=== PATIENT | male | born 1960 | race Asian ===

== ENCOUNTER 2023-04-04 09:57 | Day surgery (SDC) | payer OTHER ==
[2023-04-03 16:09] VITALS: BMI 25.1
[2023-04-04] MEDS: CIPROFLOXACIN HCL 0.3% OPHTH 2.5ML BOTTLE ONE ×3 (10:25→10:35)
[2023-04-04] MEDS: CYCLOPENTOLATE 2% OPHTH SOLN 2 ML BOTTLE ONE ×3 (10:25→10:35)
[2023-04-04] MEDS: PHENYLEPHRINE 2.5% OPTHALMIC DROP 2ML BOTTLE ONE ×3 (10:25→10:35)
[2023-04-04] MEDS: TROPICAMIDE 1% OPHTH SOLN 15 ML BOTTLE ONE ×3 (10:25→10:35)
[2023-04-04] MEDS ORDERED: LIDOCAINE 1% P/F 10 MG/ML VIAL ONE (10:26)
[2023-04-04] MEDS ORDERED: BSS (NA/CA/MG/K) BALANCED SALT SOLUTION OPHTH SOLN 15 ML BOTTLE ONE (10:27)
[2023-04-04] MEDS ORDERED: CARBACHOL 0.01% INTRA-OCULAR 1.5 ML VIAL ONE (10:27)
[2023-04-04] MEDS ORDERED: NEO/POLYMYX B SULF/DEXAMETH OPHTHALMIC 5ML BOTTLE ONE (10:27)
[2023-04-04 11:35] VITALS: PULSE 60
[2023-04-04] MEDS ORDERED: MIDAZOLAM HCL 2 MG/2 ML SINGLE DOSE VIAL ONE (12:13)
[2023-04-04 13:11] VITALS: RESP 16; TEMP 97.6
[2023-04-04 13:30] VITALS: BP 140/85
== END 2023-04-04 13:30 | disposition home or self-care (01) ==
LOC: FASU 09:57
PROVIDERS: ATTEND Ophthalmology
PROC: 08RJ3JZ Replacement of Right Lens with Synthetic Substitute, Percutaneous Approach (ICD-10-PCS; principal; 2023-04-04 12:45)
DX: H26.8 Other specified cataract (principal)
CPT/HCPCS: 66984; V2632

== ENCOUNTER 2024-01-10 10:20 | Day surgery (SDC) | payer OTHER ==
[2024-01-08 10:13] VITALS: BMI 24.3
[2024-01-10] MEDS: CYCLOPENTOLATE 2% OPHTH SOLN 2 ML BOTTLE ONE (11:00)
[2024-01-10] MEDS: CIPROFLOXACIN 0.3% EYE DROPS 5 ML BOTTLE ONE (11:00)
[2024-01-10] MEDS: PHENYLEPHRINE 2.5% OPTHALMIC DROP 2ML BOTTLE ONE (11:00)
[2024-01-10] MEDS: TROPICAMIDE 1% OPHTH SOLN 15 ML BOTTLE ONE (11:00)
[2024-01-10] MEDS ORDERED: BSS (NA/CA/MG/K) BALANCED SALT SOLUTION OPHTH SOLN 15 ML BOTTLE ONE (11:20)
[2024-01-10] MEDS ORDERED: NEO/POLYMYX B SULF/DEXAMETH OPHTHALMIC 5ML BOTTLE ONE (11:20)
[2024-01-10] MEDS ORDERED: TETRACAINE 0.5% OPHTH SOLN 2 ML BOTTLE ONE (11:20)
[2024-01-10] MEDS ORDERED: CARBACHOL 0.01% INTRA-OCULAR 1.5 ML VIAL ONE (11:20)
[2024-01-10] MEDS ORDERED: LIDOCAINE 1% P/F 10 MG/ML VIAL ONE (11:20)
[2024-01-10] MEDS ORDERED: MIDAZOLAM HCL 2 MG/2 ML SINGLE DOSE VIAL ONE (13:48)
[2024-01-10 14:11] VITALS: RESP 18; TEMP 97.3
[2024-01-10 14:35] VITALS: BP 132/80; PULSE 62
== END 2024-01-10 14:34 | disposition home or self-care (01) ==
LOC: FASU 10:20
PROVIDERS: ATTEND Ophthalmology
PROC: 08RK3JZ Replacement of Left Lens with Synthetic Substitute, Percutaneous Approach (ICD-10-PCS; principal; 2024-01-10 13:50)
DX: H26.8 Other specified cataract (principal)
CPT/HCPCS: 66984; V2632